=== PATIENT | male | born 1970 | race Caucasian/White ===

== ENCOUNTER 2019-07-23 05:44 | Emergency (ER) | payer SELFPAY ==
[2019-07-23 05:51] VITALS: BP 143/102; PULSE 91; RESP 18; TEMP 36.6; O2SAT 100
--- NOTE | 2019-07-23 06:18 | ED.GENADULT ---
HPI - General Adult General Chief complaint: Dental/Oral Stated complaint: swollen jaw Time Seen by Provider: 07/23/19 06:02 Source: patient and family Mode of arrival: ambulatory Limitations: no limitations History of Present Illness HPI narrative: Patient is a 49-year-old male with a history of dental fractures several years ago, extensive dental caries, who presents to the emergency department for evaluation of right lower molar dental pain. Patient reports aching dental pain over the past several days, with swelling over the right side of his lower jaw. He denies neck pain, no difficulty swallowing. He does report pain with chewing, and has had decreased oral intake due to this. He is able to tolerate some liquids. He denies fever, no facial swelling or redness. No purulent drainage or bleeding from the area. No recent trauma. Patient states he has required antibiotics in the past for this. He does not follow with a dentist or primary care physician due to financial constraints. Patient states pain is dull, aching in nature without radiation to the neck, upper jaw, face. No visual changes. No facial swelling. Related Data Allergies Allergy/AdvReac Type Severity Reaction Status Date / Time penicillin V Allergy Intermediate swelling Verified 07/23/19 06:22 Review of Systems Review of Systems: Narrative: CONSTITUTIONAL: Denies fever, chills, or sweats. EYES: Denies visual changes, redness, or discharge. ENT: Denies rhinorrhea, congestion, sore throat, or otalgia. CARDIOVASCULAR: Denies chest pain RESPIRATORY: Denies cough GASTROINTESTINAL: Reports mild nausea SKIN: Denies rash or itching. NEUROLOGIC: Denies numbness, or weakness. PMFSH Past Medical History Medical History (Updated 07/23/19 @ 06:28 by Odalys Burt MD) Mandibular fracture Social History Social History (Updated 07/23/19 @ 06:28 by Odalys Burt MD) Smoking status: Current every day smoker Tobacco type: cigarettes Alcohol intake: never Substance use: never Living arrangements: with family Gender identity (if verbalized by the patient): Male Exam Narrative: Exam Narrative: GENERAL: Well-appearing, well-nourished, and in no acute distress. HEAD: Normocephalic, atraumatic. EYES: PERRLA and EOMI. ENT: Nares clear, no rhinorrhea or epistaxis. Mucous membranes moist. No trismus. Uvula is midline. Extensive dental caries, tooth breakdown, there is mild right lower mandibular edema, no erythema. There is edema and erythema of the gingiva surrounding molar 30, no purulent discharge, no evidence of periapical abscess. No cervical lymphadenopathy. Neck flexion and extension normal without pain. No neck edema or erythema. Palate is not elevated. NECK: Supple. CHEST: No respiratory distress. HEART: Regular rate and rhythm. No murmur heard. Normal peripheral pulses. ABDOMEN: Nondistended EXTREMITIES: Normal range of motion. No edema. SKIN: Warm, dry, no rash. NEURO: No focal deficits. Alert and oriented x3 Course Course Emergency Course: Patient's pain is consistent with dental caries. At the time of assessment there are no signs of systemic illness, no focal signs of space-occupying abscess or lesions, no signs of Gama angina or other concerning retropharyngeal infection. The patient is controlling his secretions well without signs of airway compromise. Patient is thought reasonable for outpatient follow-up with dental evaluation. Patient given oral antibiotics and medication for analgesia. Vital Signs Vital signs: Vital Signs Temperature 36.6 C 07/23/19 05:51 Pulse Rate 91 07/23/19 05:51 Respiratory Rate 18 07/23/19 05:51 Blood Pressure 143/102 H 07/23/19 05:51 Pulse Oximetry 100 07/23/19 05:51 Temperature 36.6 C 07/23/19 05:51 Pulse Rate 91 07/23/19 05:51 Respiratory Rate 18 07/23/19 05:51 Blood Pressure 143/102 H 07/23/19 05:51 Pulse Oximetry 100 07/23/19 05:51 Medical Decision Making
[2019-07-23] MEDS: CLINDAMYCIN HCL 150 MG CAP 300 MG PO (06:36)
[2019-07-23] MEDS: ONDANSETRON HCL ODT 4 MG TABLET PO (06:36)
== END 2019-07-23 06:35 | disposition home or self-care (01) ==
PROVIDERS: Emergency Provider Emergency Medicine
DX: K02.9 Dental caries, unspecified (principal); F17.210 Nicotine dependence, cigarettes, uncomplicated
CPT/HCPCS: 99283; A9270

== ENCOUNTER 2020-11-19 12:03 | Emergency (ER) | payer OTHER, SELFPAY ==
--- NOTE | ~2020-11-19 | CT_ITS ---
EXAMINATION: CT lumbar spine wo con DATE: 11/19/2020 14:03 INDICATION: Low back pain. TECHNIQUE: Computed tomography (CT) of the lumbar spine was performed without intravenous contrast. A utomated exposure control and iterative reconstruction technique were employed. The dose-length produ ct was 420.01 mGy-cm. COMPARISON: Lumbar spine radiographs 11/19/2020 FINDINGS: There are parenchymal calcifications in left kidney. There is 3 degrees levocurvature of kit mbar spine. There is a chronic compression fracture of L1 with 1/5 loss of height. There are acute co mpression fractures of L2 and L4 with less than 1/5 loss of height. Intervertebral disc heights are n ormal. The following disc levels are specifically discussed: L1-L2: The disc does not extend beyond the endplate margins. There is mild bilateral facet joint oste oarthritis. There is no neural foraminal stenosis. There is no central canal stenosis. L2-L3: The disc is bulging. There is mild bilateral facet joint osteoarthritis. There is mild bilater al neural foraminal stenosis. There is mild central canal stenosis. L3-L4: The disc is bulging. There is moderate right and mild left facet joint osteoarthritis. There i s mild bilateral neural foraminal stenosis. There is mild central canal stenosis. L4-L5: The disc is bulging. There is mild bilateral facet joint osteoarthritis. There is mild bilater al neural foraminal stenosis. There is mild central canal stenosis. L5-S1: The disc is bulging. There is moderate right and mild left facet joint osteoarthritis. There i s no neural foraminal stenosis. There is mild central canal stenosis. IMPRESSION: 1. Acute compression fractures of L2 and L4. 2. Mild lumbar spondylosis. Reviewed, dictated and finalized at location A.
--- NOTE | ~2020-11-19 | XR_ITS ---
EXAMINATION: XR lumbar spine 2-3V DATE: 11/19/2020 12:49 INDICATION: Low back pain. TECHNIQUE: 3 views of lumbar spine were obtained. COMPARISON: None. FINDINGS: There is 3 degrees levocurvature of lumbar spine. There are compression fractures of L1 on L2 with 1/5 loss of height. L4 is a limbus vertebra. There is multilevel mild facet joint osteoarthri tis. There are small stones in left kidney. A calcification in left pelvis is likely a phlebolith. IMPRESSION: 1. Compression fractures of L1 and L2 that may be acute. 2. Mild lumbar spondylosis. Reviewed, dictated and finalized at location A.
[2020-11-19 12:18] VITALS: BP 123/78; PULSE 83; RESP 18; TEMP 36.4; O2SAT 97
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
[2020-11-19 14:45] VITALS: BP 125/86; PULSE 79; RESP 15; O2SAT 100
--- NOTE | 2020-11-19 16:56 | PC.NURSE ---
Pt requested to call insurance prior to going to [facility]. Pt also requested to take his own personal vehicle. and charge nurse made aware of this. Pt agreed to sign AMA and refusal of care paperwork. [facility] ED was called and given report.
== END 2020-11-19 16:58 | disposition left against medical advice (07) ==
PROVIDERS: Emergency Provider Emergency Medicine
DX: S32.028A Other fracture of second lumbar vertebra, initial encounter for closed fracture (principal); S32.040A Wedge compression fracture of fourth lumbar vertebra, initial encounter for closed fracture; F17.210 Nicotine dependence, cigarettes, uncomplicated; M47.816 Spondylosis without myelopathy or radiculopathy, lumbar region; X50.0XXA Overexertion from strenuous movement or load, initial encounter
CPT/HCPCS: 72100; 72131; 99284